=== PATIENT | female | born 1960 | race Two or more races ===

== ENCOUNTER 2025-07-06 07:55 | Day surgery (SDC) | payer OTHER, MEDICAID ==
[2025-07-05 11:27] LABS: Hematocrit 39.9 % (36.0-46.0); Hemoglobin 13.5 g/dL (12.2-16.2); Mean Corpuscular Hemoglobin 28.3 pg (28.0-32.0); Mean Corpuscular Volume 84.1 fL (80.0-100.0); Nucleated Red Blood Cells % 0.1 %
[2025-07-05 11:41] LABS: INR 1.06 (0.9-1.15); Partial Thromboplastin Time 27.8 SEC (24.5-34.5); Prothrombin Time 11.2 sec (9.3-11.8)
[2025-07-05 11:45] LABS: Alanine Aminotransferase 40 U/L (7-40); Albumin 4.6 g/dL (3.2-4.8); Alkaline Phosphatase 69 U/L (46-116); Anion Gap 8 (5-15); BUN/Creatinine Ratio 15.8 (10.0-20.0); Bilirubin, Total 0.6 mg/dL (0.2-1.0); Blood Urea Nitrogen 12 mg/dL (9-23); Calcium 9.9 mg/dL (8.7-10.4); Carbon Dioxide 29 mmol/L (20-31); Chloride 106 mmol/L (98-107); Glucose 94 mg/dL (74-106); Potassium 4.7 mmol/L (3.5-5.1); Sodium 143 mmol/L (136-145); Total Protein 7.8 g/dL (5.7-8.2)
[2025-07-05 12:11] LABS: Urine Protein, UAD Negative (Negative)
[~2025-07-06] VITALS: Ht 162.6 cm; Wt 121.6 kg
[~2025-07-06 07:55] MED LIST: ASPI81CH59 PO; BACL10TA PO; FENO134C19 PO; HYDR50CA2 PO; LEVO175C2 PO; LORA-622 PO; MORP15TA PO; NALO1TAB4 PO; PERCOT OP; PREG100C PO; SIMV10TA20 PO
[2025-07-06] MEDS ORDERED: KETAMINE 50mg/ML 1ml syringe IM ONE ×2 (07:56)
--- NOTE | 2025-07-06 09:20 | DVHHP2 ---
GI H&P Pre-Op Assessment Date: 07/06/25 Chief complaint: Positive Cologuard test HPI: per clinic note Past medical history: per clinic note Past surgical history: per clinic note Family history: per clinic note Physical exam: General: NAD, AAOX3 HEENT: PERRL, no scleral icterus, normal hearing, gums without lesions or bleeding, oropharynx clear without erythema or exudate. Neck: Supple without enlargement of the thyroid, or lymphadenopathy. Chest: Normal size and shape, no tenderness, lung byrd clear to auscultation and percussion, nonlabored breathing. Heart: RRR, no murmur Abdomen: non-distended, no tenderness to palpation, +BS, no hepatosplenomegaly Extremities: no edema Neurological: CN II-XII intact, sensation intact in all extremities, 5+ strength in all extremities Skin: No rashes, No jaundice Assessment: - Positive Cologuard test Plan: - Colonoscopy - Risks (bleeding, infection, perforation, reaction to sedation medications and cardiopulmonary arrest) and benefit of the procedure were explained to patient. Patient agrees to undergo the procedure. CLEMENTINA REAGAN MD Jul 06, 2025 09:20
[2025-07-06] MEDS ORDERED: HYDROmorphone HCL 2 MG/ML VL/or syr ONE (10:13)
[2025-07-06] MEDS ORDERED: PROPOFOL 10 MG/ML 20 ML IV ONE (10:14)
[2025-07-06] MEDS ORDERED: ONDANSETRON HCL 4 MG/2 ML VIAL ONE (10:14)
[2025-07-06] MEDS ORDERED: MIDAZOLAM HCL 2MG/2ML 2ml VIAL (1mg/ml) ONE (10:14)
[2025-07-06] MEDS ORDERED: GLYCOPYRROLATE 0.2 MG/ML 1ML VIAL ONE (10:14)
[2025-07-06 10:20] VITALS: PULSE 95; RESP 14; O2SAT 99
[2025-07-06 10:28] VITALS: PULSE 95; RESP 14; TEMP 98.8; O2SAT 99
--- NOTE | 2025-07-06 10:29 | DVHOP2 ---
Operative Report DATE OF OPERATION: 07/06/25 PROCEDURE: Colonoscopy. PREOPERATIVE INDICATION: The patient is a 65 -year-old female undergoing colonoscopy for positive Cologuard test. POSTOPERATIVE DIAGNOSES: 1. Normal colonoscopy PROCEDURE PERFORMED BY: Wilmar Alvarado M.D. SCOPE: Olympus videocolonoscope. ASA CLASS: 3 PREOPERATIVE MEDICATIONS: MAC with Dr Barrientos PROCEDURE IN DETAIL: After obtaining an informed consent, the patient was placed on left lateral decubitus position. She was then sedated with the above medications. A rectal examination was performed that was normal. The colonoscope was then passed through the anus into the rectosigmoid and through the descending, transverse, and ascending colon up to the cecum with visualization of the appendiceal orifice, base of the cecum and the ileocecal valve. No mass or polyp was observed. The colonoscope was then withdrawn. The patient tolerated the procedure well without difficulty. WITHDRAWAL TIME: 8 minutes QUALITY OF THE PREP: Napavine Bowel Prep score: 6 COMPLICATIONS : None SPECIMENS: None DISPOSITION: D/C to home PLAN: 1. Repeat colonoscopy in 10 years for colon cancer screening. WILMAR ALVARADO MD Jul 06, 2025 10:29
--- NOTE | 2025-07-06 10:30 | DVHDS2 ---
Physician Discharge Progress N Final Diagnosis: Normal colonoscopy Operations or Procedures: Operations or Procedures Colonoscopy Condition on Discharge: Good Disposition: Home Discharge Instructions: Diet: Regular Activity: No Restrictions, As Tolerated Medications: Resume previous home medications Follow Up Care: Discharge Statement: "Patient was advised to return to the ER or call 911 if any headaches, dizziness, shortness of breath, chest pain, abdominal pain, bleeding, fevers, or worsening of medical condition. Patient was counseled about treatment plan, medications, possible side effects, patientverbalized understanding. All questions were answered to the best of my ability. This discharge took greater then 30 minutes in planning, reviewing documentation, counseling the patient, and discussing with other team members." CLEMENTINA REAGAN MD Jul 06, 2025 10:30
[2025-07-06 10:35] VITALS: PULSE 95; RESP 16; O2SAT 96
[2025-07-06] MEDS ORDERED: HYDROmorphone HCL 2 MG/ML VL/or syr IV PRN (10:45)
[2025-07-06 10:55] VITALS: BP 149/89; PULSE 94; RESP 17; O2SAT 95
== END 2025-07-06 11:07 | disposition home or self-care (01) ==
LOC: GI 07:55
PROVIDERS: ATTEND Internal Medicine Gastroenterology
DX: R19.5 Other fecal abnormalities (principal); E78.00 Pure hypercholesterolemia, unspecified; E03.9 Hypothyroidism, unspecified; M79.7 Fibromyalgia; Z79.899 Other long term (current) drug therapy; Z90.710 Acquired absence of both cervix and uterus; Z96.651 Presence of right artificial knee joint; Z85.53 Personal history of malignant neoplasm of renal pelvis; Z90.49 Acquired absence of other specified parts of digestive tract
CPT/HCPCS: 36415; 45378; 80053; 81001; 85025; 85610; 85730; J1171; J2250; J2405; J2704; J7030